=== PATIENT | female | born 1950 | race Caucasian/White ===

== ENCOUNTER 2018-07-21 12:34 | Inpatient (IN) ==
[2018-07-21] MEDS ORDERED: Morphine Inj 4 MG/ML Vial IV.PUSH ONE (12:54)
--- NOTE | 2018-07-21 13:08 | ED ---
HPI General Chief Complaint: Extremity Injury, Lower Stated Complaint: Injury Time Seen by Provider: 07/21/18 12:54 History of Present Illness HPI Narrative: This is a 68-year-old female with a history of fibromyalgia, hypothyroidism,, who presents today with complaints of left ankle pain. The patient states she stepped off 3 steps and twisted her ankle. She states she heard a crack and immediately saw deformity. She is unable to bear weight on the leg. She denies any other injuries at this time. She does report that she has normal sensation across her distal 5 toes. Related Data Home Medications Medication Instructions Recorded Confirmed alendronate [Fosamax] 70 mg PO QWEEK 07/21/18 07/21/18 bupropion HCl 150 mg PO QAM 07/21/18 07/21/18 calcium carbonate [Calcium 500] 500 mg PO DAILY 07/21/18 07/21/18 cholecalciferol (vitamin D3) 1,000 unit PO DAILY 07/21/18 07/21/18 [Vitamin D3] diazepam [Valium] 5 mg PO DAILY 07/21/18 07/21/18 levothyroxine 75 mcg PO DAILY 07/21/18 07/21/18 naproxen [Naprosyn] 500 mg PO DAILY 07/21/18 07/21/18 omega 1-blt-xki-fish oil [Fish Oil] 1 cap PO DAILY 07/21/18 07/21/18 pantoprazole 40 mg PO DAILY 07/21/18 07/21/18 Allergies Allergy/AdvReac Type Severity Reaction Status Date / Time Penicillins Allergy Swelling Verified 07/21/18 12:51 of Lip/Tongue/Throat Sulfa (Sulfonamide Allergy Rash Verified 07/21/18 12:51 Antibiotics) Review of Systems ROS: all other systems reviewed are negative Constitutional Reports system reviewed and no additional complaints, except as docu Eyes Reports system reviewed and no additional complaints, except as docu ENT Reports system reviewed and no additional complaints, except as docu Cardiovascular Reports system reviewed and no additional complaints, except as docu Respiratory Reports system reviewed and no additional complaints, except as docu Gastrointestinal Reports system reviewed and no additional complaints, except as docu Genitourinary Reports system reviewed and no additional complaints, except as docu Musculoskeletal Reports deformity (Left ankle), Denies numbness and Denies tingling Neurologic Denies dizziness, Denies headache(s) and Denies weakness PMFSH Medical History Medical History COPD (chronic obstructive pulmonary disease) (Acute) Fibromyalgia (Acute) Hypothyroid (Acute) Osteoporosis (Acute) Social History Social History Substance History: No History of Abuse Second Hand Smoke Exposure: No Smoking Status: Former smoker Tobacco Type: Cigarettes How Often Do You Have a Drink Containing Alcohol: 2 to 4 times a month Recent Travel in [facility] within the Last 8 Weeks: No Recent Out of Country Travel within the Last 8 Weeks: No Immunization History Tetanus Immunization: Unsure Hx Influenza Vaccine This Season: No Exam Narrative Exam Narrative: GENERAL: Well developed well-nourished female no acute respiratory distress. SKIN: Focused skin assessment warm/dry. HEAD: Atraumatic. Normocephalic. EYES: No scleral icterus. No injection or drainage. ENT: No nasal bleeding or discharge. Mucous membranes pink and moist. NECK: Trachea midline. Supple. CARDIOVASCULAR: Regular rate and rhythm. No murmur appreciated. RESPIRATORY: No accessory muscle use. Clear to auscultation. Breath sounds equal bilaterally. GASTROINTESTINAL: Abdomen soft, non-tender, nondistended. Hepatic and splenic margins not palpable. MUSCULOSKELETAL: Obvious bony deformity of the left ankle. Cap refill was less than 3 seconds. He had palpable dorsalis pedis pulses. Normal sensation over the distal forefoot. NEUROLOGICAL: Awake and alert. No obvious cranial nerve deficits. Motor grossly within normal limits. Normal speech. PSYCHIATRIC: Appropriate mood and affect; insight and judgment normal. Procedures Orthopedic Joint Reduction Joint #1: Time Out Performed: Yes Side: left Joint Reduction Location: ankle Analgesia: procedural sedation Technique Used: traction/counter-traction Post-Reduction Neuro Exam: intact Post-Reduction Vascular Exam: intact Post Reduction X-Ray Obtained: Yes Post Reduction X-Ray Results: other (Improved however still posterior dislocation. Discussed with nurse practitioner for Dr. Boo and he contacted Dr. Barraza and they are okay with leaving it as is until repair tomorrow.) Splint Applied: Yes Patient Tolerated Procedure: well Procedural Sedation Indications: fracture/dislocation reduction ASA Class: ASA 2 Moderate Systemic Disease Preparation: classroom monitor applied, pulse oximeter, capnometry used, supplemental O2 applied, reversal agents at bedside, suction/airway equipment at bedside and IV secured IV Etomidate Dose (mgs): 12 Patient Tolerated Procedure: well Complications: none Interventions: oxygen applied Course Initial Documented Vital Signs Temperature 97.5 F L 07/21/18 12:47 Pulse Rate 57 L 07/21/18 12:47 Respiratory Rate 18 07/21/18 12:47 Blood Pressure 122/59 L 07/21/18 12:47 Pulse Oximetry 98 07/21/18 12:47 Last Documented Vital Signs Temperature 97.5 F L 07/21/18 12:47 Pulse Rate 68 07/21/18 18:00 Respiratory Rate 17 07/21/18 18:00 Blood Pressure 157/72 H 07/21/18 18:00 Pulse Oximetry 98 07/21/18 18:00 Medical Decision Making MDM Narrative Medical decision making narrative: 68-year-old female history of fibromyalgia, hypothyroidism, presents today with ankle pain after slipping down 3 steps. Patient has a posterior dislocation of her ankle. It is closed. She is neurovascular intact. The patient had conscious sedation for reduction of the ankle dislocation. There was improvement in the reduction however patient still has mild posterior dislocation. Discussion with GRACIELA Benjamin for Dr. Rei Barraza, was made. He cannot to Dr. Barraza and informed him that it was reduced however it likely re-dislocated when we went to splint the patient. He stated he was okay with it leaving it as it is. She is neurovascular intact. Surgery will be for tomorrow. [facility] Medical Screen Exam Complete: Yes Emergency Medical Condition: Yes Differential Diagnosis Differential Diagnosis: Ankle fracture versus dislocation versus contusion Imaging Data Radiologist's impression: Tibia/Fibula X-Ray 07/21/18 13:08 CONCLUSION: Fractures with dislocation at the ankle joint. Ankle X-Ray 07/21/18 17:40 CONCLUSION: Post reduction films demonstrate residual anterior dislocation of the tibia and mild posterior angulation of the distal fibular fracture. Discharge Plan Discharge Disposition Patient Disposition: 30 Still Patient Discharge Details Diagnosis: Closed fracture dislocation of ankle, Fall (on) (from) unspecified stairs and steps, sequela Physicians Team ED Provider: Robb Dsouza Primary Care Provider: UNKNOWN, Attending Provider: Rei Barraza Discharge Interventions Interventions: ED Discharge Assessment Last Done: 07/21/18 18:37 Vital Signs Last Done: 07/21/18 18:00 Status ED Status: Left Department Discharge Information Discharge Date/Time: 07/21/18 18:58
--- NOTE | 2018-07-21 14:15 | XR ---
EXAM DATE: 07/21/2018 1:08 PM EDT AGE/SEX: 68 years / Female INDICATIONS: patient fell down a flight of stairs twisted left ankle CLINICAL DATA: This is the patient's initial encounter. Patient reports that signs and symptoms have been present for 1 day and indicates a pain score of 6/10. MEDICAL/SURGICAL HISTORY: None. None. COMPARISON: [facility], XR LOWER LEG AP AND LAT, LEFT, 09/20/2016. . FINDINGS: There are fractures involving the distal fibula and posterior malleolus of the distal tibia. There is posterior joint dislocation at the mortise joint seen on the lateral view. The proximal tibia and fi bula are grossly intact. No joint dislocation at the knee. CONCLUSION: Fractures with dislocation at the ankle joint. Electronically signed by: Bo Mckeon MD 07/21/2018 2:14 PM EDT
[2018-07-21] MEDS ORDERED: HYDROmorphone PF Inj 0.5 MG/0.5 ML Syringe IV.PUSH ONE (14:57)
[2018-07-21] MEDS ORDERED: Etomidate Inj 20 MG/10 ML Ampul IV.PUSH ONE (15:23)
[2018-07-21] MEDS ORDERED: Acetaminophen 500 MG Tablet PO PRN (17:53)
[2018-07-21] MEDS ORDERED: diazePAM 5 MG Tablet PO PRN (18:18)
--- NOTE | 2018-07-21 18:26 | XR ---
EXAM DATE: 07/21/2018 5:40 PM EDT AGE/SEX: 68 years / Female INDICATIONS: Post reduction. CLINICAL DATA: This is the patient's initial encounter. Patient reports that signs and symptoms have been present for 1 day and indicates a pain score of Nonresponsive. MEDICAL/SURGICAL HISTORY: None. None. COMPARISON: [facility] [place]IA FIB[place]A LEFT 2V, 07/21/2018. . FINDINGS: 2 views performed in fiberglass splint. There has been partial reduction of the distal tibial disloca tion and fibular fracture with persistent anterior dislocation of the tibia with respect to the talus on the lateral view and residual posterior angulation of the distal fibular fracture. CONCLUSION: Post reduction films demonstrate residual anterior dislocation of the tibia and mild posterior angula tion of the distal fibular fracture. Electronically signed by: Boris Shanks MD 07/21/2018 6:25 PM EDT
--- NOTE | 2018-07-21 21:06 | MB ---
cc: Nirmal Zamora [facility] DATE: 07/21/2018 PROVIDER: Nirmal Zamora, nurse practitioner for Dr. Barraza. CHIEF COMPLAINT: Left ankle fracture and dislocation. HISTORY OF PRESENT ILLNESS: This is a 68-year-old female with a history of fibromyalgia, hypothyroidism, and COPD. The patient was brought to the emergency department today after falling down 3 stairs onto her left ankle. The patient states she heard a "crack" and immediately saw deformity. The patient was unable to bear any weight on the left lower extremity. The patient denies any loss of consciousness. The patient denies any other injuries at this time. The patient denies any previous injury to the left ankle. The patient denies any tingling or numbness about the left ankle and foot. Currently, the patient states her pain is a 6/10. She describes it as throbbing. The patient states her pain is constant. Her pain has improved with reduction and splinting. REVIEW OF SYSTEMS: Negative x 12 except for what is stated in the HPI. PAST MEDICAL HISTORY: Includes COPD, fibromyalgia, hypothyroidism, and osteoporosis. PAST SURGICAL HISTORY: Includes cholecystectomy, left ovary cyst removal, appendectomy, and plastic surgery for the face. SOCIAL HISTORY: The patient does have alcohol occasionally. The patient was a former smoker and quit smoking in 2004. The patient does use nicotine gum as a substitute. FAMILY HISTORY: The patient's mother from coronary artery disease and stroke. The patient's father of old age. ALLERGIES: INCLUDE SULFA AND PENICILLIN. MEDICINES: 1. Fosamax 70 mg by mouth every week. 2. Bupropion SR 150 mg by mouth every day. 3. Levothyroxine 0.75 mg by mouth every day. 4. Diazepam 5 mg by mouth every 12 hours as needed. 5. Fish oil 1 tablet by mouth daily. PHYSICAL EXAMINATION: VITAL SIGNS: Pulse 63, respirations 18, blood pressure 122/59, and oxygen saturation 98% on room air. GENERAL: The patient is well developed and well nourished. She is resting in bed, in no acute distress. HEAD: Atraumatic and normocephalic. EYES: PERRLA. EARS, NOSE, AND THROAT: The patient has moist mucous membranes with no bloody drainage from the nose or ears. NECK: Supple and trachea is midline. RESPIRATORY: The patient's breathing is nonlabored and chest wall rise is symmetric. CARDIOVASCULAR: The patient has 2+ radial pulses bilaterally and 2+ pedal pulses on the right foot. The patient has brisk capillary refill x 5 on the left foot. ABDOMEN: Soft, round, and nondistended. MUSCULOSKELETAL: The patient has no tenderness and good range of motion of the right ankle, bilateral knees, bilateral hips, bilateral wrists, bilateral elbows, and bilateral shoulders. The patient does have a well-padded splint on the left ankle. The patient is able to move her toes and has good sensation to light touch distally. NEUROLOGIC: The patient has no obvious cranial nerve deficits and is alert and oriented x 3. PSYCHOSOCIAL: The patient has normal mood and affect. IMAGING: X-rays of the left tibia and fibula, 2 views, on 07/21/2018, shows fractures involving the distal fibula and posterior malleolus of the distal tibia. There is posterior joint dislocation at the mortise with no knee dislocation. I have read the radiologist's report and agree with this interpretation. Closed reduction x-rays of the left ankle, AP and lateral views, shows a slight posterior dislocation. The overall alignment is improved from prior x-rays. IMPRESSION: Left ankle trimalleolar fractures with posterior dislocation. MEDICAL DECISION MAKING: I reviewed the patient's previous images as well as the closed reduction images. The patient is currently feeling better with decreased pain after closed reduction and splinting. I had a lengthy discussion with the patient today regarding her diagnosis. We discussed the severity of her injury. We discussed the importance of surgical intervention to restore proper anatomic alignment and mechanics to the left ankle in order to have the ability to eventually return to a normal weightbearing status. We did discuss the risks and benefits of surgery as well as what to expect with postoperative rehabilitation. The patient understands she will likely require at least 6 weeks of nonweightbearing on the left lower extremity postoperatively. The patient's ability to initiate early range of motion will depend on the stability of the ankle following surgery. The patient understands this conversation and agrees to proceed with surgical management. The patient understands she will likely require open reduction and internal fixation with plates and screws. The patient has decided to proceed with surgical management after our conversation. The patient has consents on the chart and will be n.p.o. after midnight tonight. The patient does understand this plan of care. At this time, I am unsure whether the surgeon will be Dr. Barraza or Dr. Leon. This will depend on the timing of surgery tomorrow. I have reviewed the above impression and plan of care with Dr. Barraza and he agrees with this documentation. GRACIELA Rodriguez/yajaira , 06:39 PM , 06:57 PM
[2018-07-21] MEDS ORDERED: Chlorhexidine Gluconate 2% 1 Pack (2 Cloths) TOPICAL ONE (22:14)
[2018-07-21] MEDS ORDERED: Sodium Chlor 0.9% Inj 500 ML IV.SIG SCH (23:00)
[2018-07-21] MEDS: Morphine Inj 4 MG/ML Vial IV.PUSH PRN (23:17)
[2018-07-22] MEDS: Levothyroxine 75 MCG Tablet PO SCH (05:08)
[2018-07-22] MEDS: Morphine Inj 4 MG/ML Vial IV.PUSH PRN ×2 (05:08→16:24)
[2018-07-22] MEDS ORDERED: Chlorhexidine Gluconate 2% 1 Pack (2 Cloths) TOPICAL ONE (06:38)
[2018-07-22] MEDS ORDERED: Sodium Chlor 0.9% Inj 500 ML IV.SIG SCH (07:00)
--- NOTE | 2018-07-22 07:41 | P.PNOP ---
Subjective Interval history: Patient was at home taking pictures for [employer]. She was on the third step at her townhouse. When she got up to move sure she was taking pictures she slept with her right leg and rolled her left ankle. She noted deformity and pain. She was unable to ambulate. X-rays confirm trimalleolar ankle fracture. She has been n.p.o. overnight <Chin Schmitt - Last Filed: 07/22/18 07:37> Physical Exam Vital signs: Vital Signs 07/21/18 12:47 07/21/18 12:51 07/21/18 15:07 Temperature 97.5 F L Pulse Rate 57 L 63 87 Respiratory Rate 18 18 13 Blood Pressure 122/59 L 122/59 L 142/69 H Pulse Oximetry 98 98 98 07/21/18 15:48 07/21/18 18:00 07/21/18 19:00 Temperature 97.6 F Pulse Rate 68 72 Respiratory Rate 17 18 Blood Pressure 157/72 H 132/62 Pulse Oximetry 99 98 97 07/21/18 23:45 07/22/18 03:57 Temperature 98.1 F 98.4 F Pulse Rate 78 73 Respiratory Rate 17 17 Blood Pressure 111/59 L 108/58 L Pulse Oximetry 94 L 94 L Intake & Output 07/21/18 07/22/18 07/22/18 18:59 06:59 18:59 Intake Total 360 / 360 Balance 360 / 360 Weight 72.575 kg 72.575 kg Intake: Oral 360 / 360 Other: # Voids 1 Date of Last Bowel Movement 07/21/18 # Bowel Movements 0 Weight On Admission 72.57 kg Narrative: Bilateral upper extremities: Full range of motion neurovascularly intact Right lower extremity: Full range of motion neurovascular intact Left lower extremity: No pain with hip or knee range of motion. Short leg splint with posterior and stirrup splint. She has intact sensation in all toes with good capillary refills. <Chin Schmitt - Last Filed: 07/22/18 07:37> Vital signs: Vital Signs 07/21/18 12:47 07/21/18 12:51 07/21/18 15:07 Temperature 97.5 F L Pulse Rate 57 L 63 87 Respiratory Rate 18 18 13 Blood Pressure 122/59 L 122/59 L 142/69 H Pulse Oximetry 98 98 98 07/21/18 15:48 07/21/18 18:00 07/21/18 19:00 Temperature 97.6 F Pulse Rate 68 72 Respiratory Rate 17 18 Blood Pressure 157/72 H 132/62 Pulse Oximetry 99 98 97 07/21/18 23:45 07/22/18 03:57 07/22/18 08:00 Temperature 98.1 F 98.4 F 98.6 F Pulse Rate 78 73 78 Respiratory Rate 17 17 18 Blood Pressure 111/59 L 108/58 L 123/58 L Pulse Oximetry 94 L 94 L 93 L Intake & Output 07/21/18 07/22/18 07/22/18 18:59 06:59 18:59 Intake Total 360 / 360 Balance 360 / 360 Weight 72.575 kg 72.575 kg Intake: Oral 360 / 360 Other: # Voids 1 Date of Last Bowel Movement 07/21/18 # Bowel Movements 0 Weight On Admission 72.57 kg <Missael Frazier - Last Filed: 07/22/18 08:47> Results - Imaging Impressions Tibia/Fibula X-Ray 07/21/18 13:08 CONCLUSION: Fractures with dislocation at the ankle joint. Ankle X-Ray 07/21/18 17:40 CONCLUSION: Post reduction films demonstrate residual anterior dislocation of the tibia and mild posterior angulation of the distal fibular fracture. <Chin Schmitt - Last Filed: 07/22/18 07:37> - Labs CBC & Chem 7: 07/22/18 07:47 07/22/18 07:47 Laboratory Results - last 24 hr 07/22/18 07/22/18 07/22/18 07:47 07:47 07:47 WBC 8.8 RBC 4.40 Hgb 12.5 Hct 36.8 MCV 83.6 MCH 28.5 MCHC 34.0 RDW 14.7 Plt Count 295 MPV 9.1 Neut % (Auto) 58.7 Lymph % (Auto) 31.0 [place] % (Auto) 7.9 Eos % (Auto) 1.6 Baso % (Auto) 0.8 Neut # (Auto) 5.2 Lymph # (Auto) 2.7 [place] # (Auto) 0.7 Eos # (Auto) 0.1 Baso # (Auto) 0.1 WBC Differential . Differential Comment Auto diff final PT 10.0 INR 1.0 Blood Type O Positive Blood Type Recheck Required - Imaging Impressions Tibia/Fibula X-Ray 07/21/18 13:08 CONCLUSION: Fractures with dislocation at the ankle joint. Ankle X-Ray 07/21/18 17:40 CONCLUSION: Post reduction films demonstrate residual anterior dislocation of the tibia and mild posterior angulation of the distal fibular fracture. <Missael Frazier - Last Filed: 07/22/18 08:47> Assessment and Plan - Assessment and Plan Left trimalleolar ankle fracture with dislocation Maintain splint N.p.o. Surgery this morning with Dr. Leon for open reduction internal fixation of left ankle. I explained to the patient that if the swelling is too great external fixation may be necessary but I do not anticipate this being our course of action. Signed consent <Chin Schmitt - Last Filed: 07/22/18 07:37> - Assessment and Plan [facility] Prescription Drug Monitoring Database has been queried and verified prior to prescribing the controlled substance. Acute pain exception. This patient has normal, predicted, physiological, and time limited response to an adverse mechanical stimulus associated with surgery, trauma, or acute illness as described in my notes. There is a lack of alternative treatment options other than to include the prescribed narcotic treatment for this condition. <Missael Frazier - Last Filed: 07/22/18 08:47>
[2018-07-22] MEDS: buPROPion 150 MG 12 HR Tablet PO SCH (08:05)
[2018-07-22 08:33] LABS: Baso # (Auto) 0.1 th/mm3 (0.0-0.2); Baso % (Auto) 0.8 % (0.0-2.0); Eos # (Auto) 0.1 th/mm3 (0.0-0.4); Eos % (Auto) 1.6 % (0.0-4.0); Hematocrit 36.8 % (35.0-46.0); Hemoglobin 12.5 gm/dL (11.6-15.3); Lymph # (Auto) 2.7 th/mm3 (1.0-4.8); Mean Corpuscular Hemoglobin 28.5 pg (27.0-34.0); Mean Corpuscular Volume 83.6 fL (80.0-100.0); Mean Platelet Volume 9.1 fL (7.0-11.0); Mono # (Auto) 0.7 th/mm3 (0.0-0.9); Mono % (Auto) 7.9 % (0.0-8.0); Neut # (Auto) 5.2 th/mm3 (1.8-7.7); Neut % (Auto) 58.7 % (16.0-70.0); Platelet Count 295 th/mm3 (150-450); Red Cell Distribution Width 14.7 % (11.6-17.2); White Blood Count 8.8 th/mm3 (4.0-11.0)
[2018-07-22] MEDS ORDERED: Clindamycin Inj 600 MG/4 ML Vial ONE (08:57)
[2018-07-22 09:15] LABS: Calcium 8.3 mg/dL (8.5-10.1); Carbon Dioxide 24.2 meq/L (21.0-32.0)
[2018-07-22] MEDS ORDERED: Phenylephrine/NS 1000 MCG/10ML Syringe IV.PUSH ONE (09:40)
[2018-07-22] MEDS ORDERED: Glycopyrrolate Inj 1 MG/5 ML Syringe IV.PUSH ONE (09:40)
[2018-07-22] MEDS ORDERED: Ketorolac Inj 30 MG/ML (IVP) Vial IV.PUSH ONE (09:45)
--- NOTE | 2018-07-22 09:54 | P.OP ---
- Preoperative Diagnosis (1) Closed left trimalleolar fracture (2) Closed fracture dislocation of ankle Date of procedure: 07/22/18 Procedure: Open reduction internal fixation left ankle trimalleolar fracture, open reduction to fixation left ankle syndesmosis Anesthesia: MARIYA Surgeon: Young Mcmahon MD Director Zone: SYLVIE Ulloa PA-C The surgical procedure was assisted by my physician temporary office assistant. My P.A. presence was necessary throughout this case for the manipulation and positioning of the surgical extremity. My P.A. was assisting me throughout the duration of this procedure. The skill set of a physician temporary office assistant was medically necessary to complete this procedure. During the surgical case the surgical forceps fabricator was working at the back table and the physician temporary office assistant was directly assisting me. Operation and Findings: Implants used: Synthes Plan of activity: Nonweightbearing Details of procedure: Shannon was seen and evaluated preoperatively and found to have a displaced left ankle trimalleolar fracture with dislocation. Informed consent was obtained after a detailed discussion of risk and benefits of surgery. The operative site was marked. Patient was brought to the OR, placed on the OR table, and given IV sedation and general endotracheal anesthesia. IV antibiotics were given preoperatively. A timeout procedure was performed. The left leg was prepped with alcohol followed by Hibiclens and draped in the usual sterile fashion. Attention was turned towards the distal fibula. A four-inch incision was made over the distal fibula. The subcutaneous tissue was dissected with Bovie. The fracture site was visualized. The fracture site was cleaned with curets. The fracture was now reduced. The fracture keyed into anatomic alignment. K-wires were used to h old provisional fixation. A plate was selected and contoured to the fibula. The plate was provisionally held to bone with K-wires. 3.5 cortical screws were used to compress the plate to bone. Multiple cortical screws were placed above and below the fracture. Additional locking screws were placed into the distal fibula. At this point attention was turned towards the medial malleolus and posterior malleolus fractures. The medial malleolus fragment was very small. The fragment appeared to be too small for stable internal fixation. The posterior malleolus fragment was also small with minimal articular surface. These fragments were in anatomic alignment. Next, attention was turned to the syndesmosis. The syndesmosis was stressed. There was clear widening of the syndesmosis with external rotation of the ankle. The syndesmosis was now held in a reduced position with the ankle in neutral position. Two cortical screws were now placed through the fibula plate into the tibia. Fluoroscopy confirmed appropriate screw placement with well- aligned syndesmosis. Incisions were thoroughly irrigated. The subcutaneous tissue was closed with 3-0 PDS and the skin was closed with 3-0 nylon. Sterile dressings were applied. The patient was transferred to Recovery in stable condition.
[2018-07-22] MEDS ORDERED: Morphine Sulfate Inj 8 MG/ML Vial IV.PUSH PRN (09:59)
--- NOTE | 2018-07-22 09:59 | P.CONOP ---
[facility] Orthopedics Consult Note - [facility] Consult date: 07/22/18 Chief complaint: right ankle fracture/dislocation, hypotyroidism, Narrative: Shannon is a pleasant 68-year-old female. She was going down steps. She twisted her ankle. She had immediate pain and deformity of her left ankle. She denies dizziness, syncope, or loss of consciousness. Pain was initially severe and intense. Pain has improved with pain medication. She describes a mechanical fall. She presented to the emergency room where x-rays revealed a fracture dislocation of her left ankle. She underwent closed reduction in the emergency department. She is currently awake and alert on the orthopedic floor. Her only complaint is her left ankle. Review of Systems Patient denies fevers, chills, weight loss, headache, visual changes, hearing loss, chest pain, palpitations, shortness of breath, nausea, vomiting, no urinary changes, diarrhea, bowel changes, neck pain, back pain, skin rashes, weakness of extremities, easy bleeding, enlarged lymph nodes, numbness of extremities, anxiety, or depression. Patient's social history, past medical history, and family history were reviewed on chart and with patient. She denies any pertinent family history. [facility] - History History Provided By: Patient - Medical History Medical History: Medical History (Last Reviewed 07/22/18 @ 09:56 by Young Mcmahon MD) COPD (chronic obstructive pulmonary disease) Fibromyalgia Hypothyroid Osteoporosis - Social History I have reviewed the patient's Social History: Yes - Tobacco History Second Hand Smoke Exposure: No Tobacco Use In Past 30 Days: No Smoking Status: Never smoker Tobacco Type: Cigarettes - Alcohol History How Often Do You Have a Drink Containing Alcohol: Never - Substance Use History Substance History: No History of Abuse - Travel History Recent Travel in the [place] Within the Last 8 Weeks: No Recent Travel Out of the Country Within the Last 8 Weeks: No - Immunization History Tetanus Immunization: Unsure Hx Influenza Vaccine This Season: No Medications and Allergies Active Medications: Active Medications Acetaminophen (Tylenol) 500 mg PO Q6H PRN PRN Reason: FEVER Hydrocodone Bitart/Acetaminophen ([place] 10/325) 1 tab PO Q6H PRN PRN Reason: Acute Pain 6-10 Last Admin: 07/22/18 02:48 Dose: 1 tab Hydrocodone Bitart/Acetaminophen ([place] 5/325) 1 tab PO Q4H PRN PRN Reason: Acute Pain 1-5 Bupropion HCl (Wellbutrin Sr) 150 mg PO DAILY [facility] Last Admin: 07/22/18 08:05 Dose: Not Given Diazepam (Valium) 5 mg PO Q12HR PRN PRN Reason: ANXIETY Lactated Ringer's (Lr 1000 Ml Inj) 1,000 mls @ 30 mls/hr IV.SIG .Q24H [facility] Stop: 07/23/18 06:44 Sodium Chloride (Ns Inj) 500 mls @ 30 mls/hr IV.SIG .Q10H [facility] Levothyroxine Sodium (Synthroid) 75 mcg PO DAILY@0600 [facility] Last Admin: 07/22/18 05:08 Dose: 75 mcg Morphine Sulfate (Morphine Inj) 2 mg IV.PUSH Q4H PRN PRN Reason: BREAKTHROUGH PAIN 1-10 Last Admin: 07/22/18 05:08 Dose: 2 mg Ondansetron HCl (Zofran Odt) 4 mg SL Q6H PRN PRN Reason: NAUSEA OR VOMITING Allergies Allergy/AdvReac Type Severity Reaction Status Date / Time Penicillins Allergy Swelling Verified 07/21/18 12:51 of Lip/Tongue/Throat Sulfa (Sulfonamide Allergy Rash Verified 07/21/18 12:51 Antibiotics) Home Medications Medication Instructions Recorded Confirmed Type alendronate [Fosamax] 70 mg PO QWEEK 07/21/18 07/21/18 History bupropion HCl 150 mg PO QAM 07/21/18 07/21/18 History calcium carbonate [Calcium 500] 500 mg PO DAILY 07/21/18 07/21/18 History cholecalciferol (vitamin D3) 1,000 unit PO DAILY 07/21/18 07/21/18 History [Vitamin D3] diazepam [Valium] 5 mg PO BID PRN 07/21/18 07/21/18 History levothyroxine 75 mcg PO DAILY 07/21/18 07/21/18 History naproxen [Naprosyn] 500 mg PO DAILY PRN 07/21/18 07/21/18 History omega 2-htj-rcf-fish oil [Fish Oil] 1 cap PO DAILY 07/21/18 07/21/18 History pantoprazole 40 mg PO DAILY 07/21/18 07/21/18 History Exam Vital signs: Vital Signs 07/21/18 12:47 07/21/18 12:51 07/21/18 15:07 Temperature 97.5 F L Pulse Rate 57 L 63 87 Respiratory Rate 18 18 13 Blood Pressure 122/59 L 122/59 L 142/69 H Pulse Oximetry 98 98 98 07/21/18 15:48 07/21/18 18:00 07/21/18 19:00 Temperature 97.6 F Pulse Rate 68 72 Respiratory Rate 17 18 Blood Pressure 157/72 H 132/62 Pulse Oximetry 99 98 97 07/21/18 23:45 07/22/18 03:57 07/22/18 08:00 Temperature 98.1 F 98.4 F 98.6 F Pulse Rate 78 73 78 Respiratory Rate 17 17 18 Blood Pressure 111/59 L 108/58 L 123/58 L Pulse Oximetry 94 L 94 L 93 L Intake & Output 07/21/18 07/22/18 07/22/18 18:59 06:59 18:59 Intake Total 360 / 360 Balance 360 / 360 Weight 72.575 kg 72.575 kg Intake: Oral 360 / 360 Other: # Voids 1 Date of Last Bowel Movement 07/21/18 # Bowel Movements 0 Weight On Admission 72.57 kg Narrative: Shannon is a pleasant 68-year-old female. General: Awake and alert. No acute distress. Appears well-developed well- nourished Head: Normocephalic, atraumatic pupils are equal Neck: Soft, nontender, trachea midline Abdomen: Soft, nondistended Examination of right arm reveals no pain or deformity with shoulder, elbow, or wrist motion. Skin is intact. Radial pulse is palpable. Normal capillary refill in fingers. Sensation is intact in radial, ulnar, and median nerve distributions. [place] strength is +5. No lymphadenopathy noted. Examination of left arm reveals no pain or deformity with shoulder, elbow, or wrist motion. Skin is intact. Radial pulse is palpable. Normal capillary refill in fingers. Sensation is intact in radial, ulnar, and median nerve distributions. [place] strength is +5. No lymphadenopathy noted. Examination of left lower extremity reveals no pain or deformity with hip motion. She has no tenderness around her knee. She has mild swelling of her ankle. She has pain with ankle motion. Skin is intact. Sensation is intact in left foot. Dorsalis pedis pulse is palpable. Normal capillary refill and feet. Thigh and calf compartments are soft. No lymphadenopathy noted. Examination of right lower extremity reveals no pain or deformity with hip, knee , or ankle motion. Skin is intact. Sensation is intact in right foot. Dorsalis pedis pulse is palpable. Normal capillary refill and feet. Thigh and calf compartments are soft. No lymphadenopathy noted. +5 strength of ankle dorsiflexion and plantarflexion. Results - Labs Result Diagrams: 07/22/18 07:47 07/22/18 07:47 Labs: Laboratory Results - last 24 hr 07/22/18 07/22/18 07/22/18 07:47 07:47 07:47 WBC 8.8 RBC 4.40 Hgb 12.5 Hct 36.8 MCV 83.6 MCH 28.5 MCHC 34.0 RDW 14.7 Plt Count 295 MPV 9.1 Neut % (Auto) 58.7 Lymph % (Auto) 31.0 Mcdonald % (Auto) 7.9 Eos % (Auto) 1.6 Baso % (Auto) 0.8 Neut # (Auto) 5.2 Lymph # (Auto) 2.7 Mcdonald # (Auto) 0.7 Eos # (Auto) 0.1 Baso # (Auto) 0.1 WBC Differential . Differential Comment Auto diff final PT 10.0 INR 1.0 Sodium 140 Potassium 4.0 Chloride 108 H Carbon Dioxide 24.2 Anion Gap 8 BUN 12 Creatinine 0.84 Estimated GFR 68 L Random Glucose 98 Calcium 8.3 L Blood Type Blood Type Recheck Antibody Screen 07/22/18 07:47 WBC RBC Hgb Hct MCV MCH MCHC RDW Plt Count MPV Neut % (Auto) Lymph % (Auto) Mcdonald % (Auto) Eos % (Auto) Baso % (Auto) Neut # (Auto) Lymph # (Auto) Mcdonald # (Auto) Eos # (Auto) Baso # (Auto) WBC Differential Differential Comment PT INR Sodium Potassium Chloride Carbon Dioxide Anion Gap BUN Creatinine Estimated GFR Random Glucose Calcium Blood Type O Positive Blood Type Recheck Required Antibody Screen Negative - Diagnostic results Imaging: Impressions Tibia/Fibula X-Ray 07/21/18 13:08 CONCLUSION: Fractures with dislocation at the ankle joint. Ankle X-Ray 07/21/18 17:40 CONCLUSION: Post reduction films demonstrate residual anterior dislocation of the tibia and mild posterior angulation of the distal fibular fracture. Ankle/Foot x-ray: report reviewed, image reviewed Assessment and Plan - Assessment and Plan Shannon has a left ankle trimalleolar fracture with ankle dislocation. Treatment options were discussed with her. At this point I would recommend open reduction internal fixation of left ankle versus possible external fixation. The risk and benefits of surgery were discussed in depth with patient. She understands that she is at risk of developing post medical arthritis and ankle stiffness. The risk and benefits of surgery were discussed in depth with patient. The risk of surgery include bleeding, infection, injuries to arteries , nerves, or blood vessels, infection, wound complications, nonunion, malunion, painful hardware, and need for further surgery. I also discussed medical complications including blood clots, pneumonia, stroke, heart attack, and . Informed consent was obtained and all questions were answered. N.p.o.--plan on surgery this morning Calcium and vitamin D supplementation Physical therapy consult--nonweightbearing Follow-up with Dr. Mcmahon in 2 weeks TANMAY Soria A mid-level provider in my office (nurse practitioner or physician customer service assistant) may see this patient on follow-up visits and continue to implement the objectives of this plan including: Starting or adjusting medications, injections , cast application, orthotics, brace application, physical therapy, radiological studies (including x-ray, MRI, CT, ultrasound, bone scan), vascular studies, neurologic studies, specialist consultation, and proceeding with surgical management, as appropriate. [facility] [employer] Prescription Drug Monitoring Database has been queried and verified prior to prescribing the controlled substance. Acute pain exception. This patient has normal, predicted, physiological, and time limited response to an adverse mechanical stimulus associated with surgery, trauma, or acute illness as described in my notes. There is a lack of alternative treatment options other than to include the prescribed narcotic treatment for this condition.
[2018-07-22] MEDS ORDERED: fentaNYL Citrate Inj 100 MCG/2 ML Ampul ONE (10:22)
--- NOTE | 2018-07-22 12:56 | XR ---
EXAM DATE: 07/22/2018 12:00 AM EDT AGE/SEX: 68 years / Female INDICATIONS: ORIF left ankle fracture. CLINICAL DATA: This is the patient's subsequent encounter. Patient reports that signs and symptoms h ave been present for 2 days and indicates a pain score of Nonresponsive. MEDICAL/SURGICAL HISTORY: Non-responsive. Non-responsive. COMPARISON: [facility], XR LOWER LEG AP AND LAT, LEFT, 09/20/2016. [facility], ANKLE LIMITED LEFT 2V, 07/21/20 18. . FINDINGS: 4 spot fluoroscopic images obtained in the operating room during a procedure demonstrates placement o f a lateral distal fibular sideplate with multiple interlocking screw and 2 syndesmotic screws. Ankle mortise is intact. CONCLUSION: Normal alignment following ORIF of the left ankle fracture. Electronically signed by: Josh Cabrera MD 07/22/2018 12:54 PM EDT
--- NOTE | 2018-07-22 20:52 | ECG ---
Date Performed: 07/22/2018 Time Performed: 06:59:04 PTAGE: 68 years EKG: Sinus rhythm NORMAL ECG NO PREVIOUS TRACING DOCTOR: Keily Grijalva Interpretating Date/Time 07/22/2018 20:51:08
[2018-07-23] MEDS: Levothyroxine 75 MCG Tablet PO SCH (05:58)
[2018-07-23] MEDS: buPROPion 150 MG 12 HR Tablet PO SCH (10:24)
[2018-07-23 12:09] VITALS: BP 134/65; PULSE 75; RESP 13; TEMP 97.6; O2SAT 97
--- NOTE | 2018-07-23 13:49 | P.DS ---
Date of admission: 07/21/18 16:48 Primary care physician: UNKNOWN Attending physician on discharge: Young Mcmahon Anticipated date of discharge: 07/23/18 Brief History from admission: Shannon is a pleasant 68-year-old female. She was going down steps. She twisted her ankle. She had immediate pain and deformity of her left ankle. She denies dizziness, syncope, or loss of consciousness. Pain was initially severe and intense. DS: Diagnosis - Discharge Diagnosis (1) Closed fracture dislocation of ankle Status: Acute DS: Medications - Discharge Medications Prescriptions: hydrocodone-acetaminophen [[place]] 1 tab PO Q4H #40 tab DS: Summary Hospital Course: patient admitted from the emergency department after suffering a fall at home. She underwent surgery on 07-22-18 for open reduction internal fixation of her left ankle. she tolerated the procedure well was admitted 6 N. On postoperative day 1, she was out of bed with therapy and ambulating with minimal discomfort. She is hemodynamically stable and fit for discharge. She' ll be discharged home with home health care. She'll remain nonweightbearing in the left ankle. She'll maintain her splint at all times. She'll follow up with Dr. Mcmahon or his PA 2 weeks in the office. - Time Spent with Patient Total time spent providing and/or coordinating discharge services: Less than 30 minutes - Quality: VTE Deep Vein Thrombosis/Pulmonary Embolism Present on Admission: No Exam Vital signs: Vital Signs 07/22/18 16:00 07/22/18 16:26 07/22/18 20:00 Temperature 98.0 F 98.3 F Pulse Rate 78 81 Respiratory Rate 18 18 18 Blood Pressure 147/74 H 134/61 Pulse Oximetry 93 L 95 07/23/18 00:00 07/23/18 04:00 07/23/18 08:00 Temperature 98.5 F 98.2 F 98.1 F Pulse Rate 76 91 H 73 Respiratory Rate 18 20 12 Blood Pressure 109/51 L 140/66 127/65 Pulse Oximetry 92 L 95 91 L 07/23/18 12:00 Temperature 97.6 F Pulse Rate 75 Respiratory Rate 13 Blood Pressure 134/65 Pulse Oximetry 97 Intake & Output 07/22/18 07/23/18 07/23/18 18:59 06:59 18:59 Intake Total 940 / 940 480 / 480 Output Total 20 / 20 Balance 920 / 920 480 / 480 Weight 76.3 kg Intake: Oral 240 / 240 480 / 480 Anesthesia Amount 700 / 700 Output: Estimated Blood Loss Other: # Voids 3 4 Date of Last Bowel Movement 07/23/18 # Bowel Movements 0 1 Narrative: LLE: dressings clean and dry. intact. +splint. nvi Results Procedures completed during hospitalization: ORIF left ankle - Impressions ITS Impressions Tibia/Fibula X-Ray 07/21/18 13:08 CONCLUSION: Fractures with dislocation at the ankle joint. Ankle X-Ray 07/22/18 00:00 CONCLUSION: Normal alignment following ORIF of the left ankle fracture. Discharge Plan - Discharge Disposition Patient Disposition: Discharge Home - Discharge Condition Condition: Good - Discharge Order Discharge Orders: Discharge Order (Routine); Ordered 07/22/18 Ordered By: Young Mcmahon - Physicians Team Primary Care Provider: UNKNOWN, Attending Provider: Rei Barraza Other Providers: Young Mcmahon MD
== END 2018-07-23 16:24 | disposition home or self-care (01) ==
LOC: NEPC 12:34 → NEDA 16:48 → N06 18:56
PROVIDERS: ADMIT Orthopaedic Surgery; ATTEND Orthopaedic Surgery
PROC: ORIFANK (2018-07-22 08:59)